=== PATIENT | female | born 1940 | race Caucasian/White ===

== ENCOUNTER → 2024-02-19 10:11 | Outpatient (REF) | payer OTHER, SELFPAY | LOC: HWRAD 10:11 | PROVIDERS: ATTENDING PHYSICIAN Nurse Practitioner Adult Health; FAMILY PHYSICIAN Nurse Practitioner Adult Health | DX: J18.9 Pneumonia, unspecified organism (principal) | CPT/HCPCS: 71250 ==

== ENCOUNTER → 2024-06-23 09:50 | Outpatient (REF) | payer OTHER, SELFPAY | LOC: RCS 09:50 | PROVIDERS: ATTENDING PHYSICIAN Nurse Practitioner; FAMILY PHYSICIAN Nurse Practitioner Adult Health | DX: I10 Essential (primary) hypertension (principal); I48.0 Paroxysmal atrial fibrillation | CPT/HCPCS: 93225; 93226 ==

== ENCOUNTER → 2024-07-17 14:16 | Outpatient (REF) | payer OTHER, SELFPAY | LOC: HWRAD 14:16 | PROVIDERS: ATTENDING PHYSICIAN Nurse Practitioner Adult Health | DX: Z78.0 Asymptomatic menopausal state (principal) | CPT/HCPCS: 77080 ==

== ENCOUNTER → 2024-09-28 11:04 | Outpatient (REF) | payer OTHER, SELFPAY | LOC: HWRAD 11:04 | PROVIDERS: ATTENDING PHYSICIAN Internal Medicine Critical Care Medicine; FAMILY PHYSICIAN Nurse Practitioner Adult Health | DX: R91.1 Solitary pulmonary nodule (principal) | CPT/HCPCS: 71250 ==

== ENCOUNTER → 2024-10-05 11:28 | Outpatient (REF) | payer OTHER, SELFPAY | LOC: HWWDC 11:28 | PROVIDERS: ATTENDING PHYSICIAN Nurse Practitioner Adult Health | DX: Z12.31 Encounter for screening mammogram for malignant neoplasm of breast (principal) | CPT/HCPCS: 77063; 77067 ==

== ENCOUNTER 2025-08-19 18:21 | Day surgery (SDC) | payer MEDICARE, SELFPAY ==
[2025-08-19 15:28] VITALS: BP 151/87
--- NOTE | 2025-08-19 16:25 | ED.GENMED ---
History of Present Illness
General
Chief Complaint: Foreign Body Ingestion
Time Seen by Provider: 08/19/25 15:35
History of Present Illness
History of Present Illness:
85-year-old female presents to the emergency department after accidental ingestion of her hearing aids. They are rechargeable with no exposed battery per patient and family. She denies complaints at this time
Past History
Past History
ED Past Medical History: Arrthythmia (Atrial fib), Cancer (Skin CA, Breast CA), CHF, COPD, HTN, Hypercholesterolemia, NIDDM and Other (migraine, Cellulitis, Anemia, )
ED Past Surgical History: Orthopedic (Right abd left hip replacement, Right and left knee replacement), Urological (Bladder lift) and Other (Bilateral lumpectomy)
Social History
Tobacco: 2nd hand smoke exposure
Alcohol: None
Drug: None
Personal:
Living: alone
Employment: Other
Family History
Family History: Other
Review of Systems
Review of Systems
Allergies reviewed?: Yes
All Other Systems: ROS reviewed and negative except as documented in HPI and ROS
Phy Exam
Physical Exam
Physical Exam:
GEN: Well appearing, NAD, WDWN
HEENT: Oral mucosa moist, no scleral icterus
Cardiac: Regular rate
Lung: No respiratory distress, no tachypnea
MSK: No gross deformity or injuries
Skin: Good color, no pallor or jaundice, no rashes
Neuro: AO x3, moves all extremities freely
Psych: Calm, cooperative
Course
Orders/Labs/Results
Orders:
Orders
08/19/25 15:36
CR Obstruct Series W/pa Chest Urgent
Reason For Exam: possible FB ingestion
08/19/25 17:41
Dexamethasone Sod Phosphate [Decadron] 20 mg .ROUTE .STK-MED ONE
Lidocaine 2% Mpf [Xylocaine Mpf 2%] 100 mg .ROUTE .STK-MED ONE
Ondansetron Injectable [Zofran] 4 mg .ROUTE .STK-MED ONE
Phenylephrine HCl/0.9% NaCl [[place]-Synephrine] 1,000 mcg .ROUTE .STK-MED ONE
Propofol [Diprivan] 20 ml .ROUTE .STK-MED
Rocuronium [place] [Rocuronium] 50 mg .ROUTE .STK-MED ONE
08/19/25 17:42
Succinylcholine Chloride [Succinylcholine] 200 mg .ROUTE .STK-MED ONE
08/19/25 17:58
Sugammadex Sodium [Bridion] 400 mg .ROUTE .STK-MED ONE
08/19/25 18:09
Fentanyl Citrate/Pf [Sublimaze] 25 mcg IV [id number] PRN
HYDROmorphone [Dilaudid] 0.25 mg IV PACU-Q5MPRN PRN
Morphine Sulfate 1 mg IV PACU-Q5MPRN PRN
Ondansetron Injectable [Zofran] 4 mg IV PACU-ONCEPRN PRN
Prochlorperazine [Compazine] 5 mg IV PACU-ONCEPRN PRN
Notify MD As Directed
Notify physician if: for SDS patients with known or suspected sleep obstructive sleep apnea, monitor in the
PACU.
Notify MD for any apneic/desaturation episodes
O2 Therapy [RESP] Urgent
Titrate/Wean O2 to maintain O2 sat greater than (%): 92
Special Instructions: -Provide supplemental oxygen to achieve O2 sat of 92% or greater.
-After 15 min, may wean O2 and discontinue if patient is able to maintain O2 sat of 92%
or greater during recovery period.
If patient is a discharge home, without oxygen therapy, notify anestheiologist if
unable to maintain O2 SAT of 92% or greater on room air for MD clearance.
08/19/25 18:15
Normosol (Mult Electrolytes) [Normosol-R/Plasmalyte-A] 1,000 ml IV PER PROTOCOL
Normosol (Mult Electrolytes) [Normosol-R/Plasmalyte-A] 1,000 ml IV PER PROTOCOL
08/19/25 18:21
Fentanyl Citrate/Pf [Sublimaze] 25 mcg IV [id number] PRN
HYDROmorphone [Dilaudid] 0.25 mg IV PACU-Q5MPRN PRN
Morphine Sulfate 1 mg IV PACU-Q5MPRN PRN
Ondansetron Injectable [Zofran] 4 mg IV PACU-ONCEPRN PRN
Prochlorperazine [Compazine] 5 mg IV PACU-ONCEPRN PRN
08/19/25 20:10
Propofol [Diprivan] 20 ml .ROUTE .STK-MED
Vital Signs
Initial and Last Documented VS:
Initial Vital Signs
Temp Pulse Resp BP Pulse Ox
97.9 F 98 20 151/87 96
08/19/25 15:28 08/19/25 15:28 08/19/25 15:28 08/19/25 15:28 08/19/25 15:28
Last Documented Vital Signs
Temp Pulse Resp BP Pulse Ox
97.9 F 98 20 151/87 96
08/19/25 15:28 08/19/25 15:28 08/19/25 15:28 08/19/25 15:28 08/19/25 16:25
MDM/Problems Addressed
MDM/Problems Addressed:
Imaging reveals foreign bodies in the stomach most likely. After detailed review with the patient as well as GI on-call Dr. Casas, the decision was made to take the patient for endoscopic intervention
*Pulse Oximetry
SaO2: 96
Oxygen Mode of Delivery: Room air
Patient hypoxic: no
*Critical Care Note
Total Time (30-74mins, 75-104mins- exclusive of procedures): Not Applicable
ED Attending Note
-
Portions of this chart may have been created with voice recognition software.� Occasional wrong word or��sound alike� substitutions may have occurred due to the inherent limitations of voice recognition software.
Discharge Plan
Departure
Patient Disposition: GI LAB
Date of Disposition: 08/19/25
Time of Disposition: 17:07
Admit to: GI lab
Presentation/result/management discussed w/ accepting MD/DO: Gastroenterology
Discharge Problem:
Foreign body ingestion
Interventions
Interventions:
*Risk Screen - Suicide Last Done: 08/19/25 15:28
*General Assessment Last Done: 08/19/25 15:49
*Neglect/Abuse Screening Last Done: 08/19/25 15:28
*ED- Fall Risk Assessment Last Done: 08/19/25 15:49
*ED COVID-19 Vaccine History Last Done: 08/19/25 15:49
*ED Influenza Vaccine History Last Done: 08/19/25 15:49
*Nursing Disposition Last Done: 08/19/25 18:09
AY-Cyragc-Zetyjxaglr Assessment Last Done: 08/19/25 15:51
ED- Pulmonary Assessment Last Done: 08/19/25 15:51
ED-EENT Assessment Last Done: 08/19/25 15:51
Discharge Date and Time
Discharge Date/Time: 08/19/25 18:10
--- NOTE | 2025-08-19 17:56 | CON.GI ---
Consultation
-
Date/Time Consultation Requested: 08/19/25 4:49pm
Date/Time Consultation Performed: 08/19/25 5:58pm
Requesting Provider: Alex Mejia
Performing Provider: Connor Casas
Reason for Consultation: Ingested foreign body
Medical History
Chief Complaint / HPI
Chief Complaint: Ingested foreign body
History of Present Illness:
85 year old female accidentally ingested her hearing aids this afternoon at 2pm. she has memory issues. Denies abd pain
Past Medical History
Past Medical History: Arrhythmias, CHF and Other (Moderate )
Past Surgical History: None
Social History
Tobacco: Non-Smoker
Family History
Family History: Reviewed & Not Pertinent
Allergies / Home Medications
Allergy/AdvReac Type Severity Reaction Status Date / Time
cat dander Allergy throat Verified 08/19/25 15:28
closes/difficulty
swallowing
pollen extracts Allergy Sneezing, Verified 08/19/25 15:28
watery
eyes -
seasonal
�Medication �Instructions �Recorded
cyanocobalamin (vitamin B-12) 2,500 mcg PO DAILY Supplement 12/22/18
1,000 mcg tablet
losartan 50 mg tablet 50 mg PO DAILY Blood pressure ##0 12/22/18
Coffee Xt/Phosphatidyl Serine 1 cap PO DAILY Supplement 11/21/21
[Neuriva Original 100-100mg Cap]
apixaban 5 mg tablet (Eliquis) 5 mg PO BID ##0 11/27/21
cholecalciferol (vitamin D3) 50 5,000 units PO DAILY Supplement 01/10/22
mcg (2,000 unit) tablet
furosemide 40 mg tablet 40 mg PO DAILY Fluid 01/11/22
retention/Swelling
simvastatin 20 mg tablet 20 mg PO DAILY #30 tabs 01/18/22
sotalol 80 mg tablet 80 mg PO BID #60 tabs 01/18/22
epinephrine 0.3 mg/0.3 mL 0.3 mg (0.3 mL) IM .STAT PRN 04/24/22
injection, auto-injector (EpiPen) anaphylaxis #1 ea
prednisone 20 mg tablet 40 mg (2 x 20 mg) PO DAILY #8 tabs 04/24/22
Review of Systems
-
All other systems: A 12 pt ROS was Negative except as stated above in HPI
Vital Signs
Temp Pulse Resp BP Pulse Ox
97.9 F 98 20 151/87 96
08/19/25 15:28 08/19/25 15:28 08/19/25 15:28 08/19/25 15:28 08/19/25 16:25
Physical Exam
Exam
General: No Apparent Distress
HEENT: Normocephalic and Atraumatic
Respiratory: Non Labored Respirations
GI: Soft, Non Tender and Non Distended
Results
Diagnostic Image Results:
Prior GI Procedures:
EGD:
Colonoscopy:
Assessment / Plan
-
Impression:
Ingested foreign body
Recommendations:
She ingested hearing aid which contains Li-ion battery. This will most likely pass given small size. I discussed the small risk of battery rupture with pt's family and risks/benefits given her cardiac disease.
They would prefer to try EGD to remove if we can safely accomplish rather than allow it to pass.
Will attempt EGD to remove.
-
-
Thank you for consultation and allowing me to participate in the patient's care. Please call the electronic resources librarian GI physician during the after hours with any questions or concerns.
== END 2025-08-19 19:36 | disposition home or self-care (01) ==
LOC: SDS 18:21
PROVIDERS: ATTENDING PHYSICIAN Specialist; EMERGENCY PHYSICIAN Emergency Medicine; FAMILY PHYSICIAN Nurse Practitioner Adult Health
DX: T18.2XXA Foreign body in stomach, initial encounter (principal); W44.G1XA Audio device entering into or through a natural orifice, initial encounter; K22.2 Esophageal obstruction; K57.10 Diverticulosis of small intestine without perforation or abscess without bleeding
CPT/HCPCS: 43247; 74022; 99284

== ENCOUNTER → 2025-08-26 17:43 | Outpatient (REF) | payer MEDICARE, SELFPAY | LOC: RAD 17:43 | PROVIDERS: ATTENDING PHYSICIAN Nurse Practitioner Adult Health | DX: R10.9 Unspecified abdominal pain (principal) | CPT/HCPCS: 74018 ==